=== PATIENT | female | born 1970 | race Caucasian/White ===

== ENCOUNTER → 2017-05-01 | Outpatient (CLI) | payer BC | LOC: MC.RAD 07:30 | DX: N64.89 Other specified disorders of breast (principal) ==

== ENCOUNTER → 2018-10-19 | Outpatient (CLI) | payer OTHER | LOC: MC.RAD 10:57 | DX: Z12.31 Encounter for screening mammogram for malignant neoplasm of breast (principal) ==

== ENCOUNTER → 2019-10-25 | Outpatient (CLI) | payer OTHER | LOC: MC.RAD 09:53 | DX: Z12.31 Encounter for screening mammogram for malignant neoplasm of breast (principal) ==

== ENCOUNTER → 2020-11-06 | Outpatient (CLI) | payer OTHER | LOC: MC.RAD 10-30 10:15 | DX: Z12.31 Encounter for screening mammogram for malignant neoplasm of breast (principal); N64.89 Other specified disorders of breast ==

== ENCOUNTER → 2020-11-16 | Outpatient (CLI) | payer OTHER | LOC: MC.RAD 08:00 | DX: N64.89 Other specified disorders of breast (principal) ==

== ENCOUNTER → 2021-05-21 | Outpatient (CLI) | payer OTHER | LOC: MC.RAD 09:56 | DX: N64.89 Other specified disorders of breast (principal) ==

== ENCOUNTER → 2021-11-26 | Outpatient (CLI) | payer OTHER | LOC: MC.RAD 13:44 | DX: Z12.31 Encounter for screening mammogram for malignant neoplasm of breast (principal) ==

== ENCOUNTER 2022-02-12 07:00 | Day surgery (SDC) | payer OTHER ==
[~2022-02-12] VITALS: Ht 170.2 cm; Wt 90.9 kg
[2022-02-12] MEDS ORDERED: LEXAPRO 10MG10 MG PO (07:20)
[2022-02-12 07:22] VITALS: BP 136/84; PULSE 79; TEMP 97.6
[2022-02-12 08:30] VITALS: BP 130/69; PULSE 70
--- NOTE | 2022-02-12 08:30 | NUR ---
PATIENT RETURNS TO BAY 1 PER CART AND ASSISTED FROM CART TO RECLINER WITH ONE PERSON ASSIST. IV FLUIDS INFUSING. TEMP 98.0 AND ROOM AIR SATS 98%. SPOUSE IN ROOM. DENIES PAIN OR NAUSA. GIVEN COFFE AND MUFFIN.
[2022-02-12 08:45] VITALS: BP 121/71; PULSE 67
--- NOTE | 2022-02-12 08:45 | NUR ---
DR. MURRIETA IN THE ROOM AND TALKS WITH PATIENT AND SPOUSE. ALL QUESTIONS ANSSWERED.
[2022-02-12 09:00] VITALS: BP 123/77; PULSE 62
--- NOTE | 2022-02-12 09:00 | NUR ---
ROOM AIR SATS 99%. TOLERATED SNACK.
--- NOTE | 2022-02-12 09:07 | NUR ---
IV DISCONTINUED AND SITE IS FREE OF REDNESS OR SWELLING. PATIENT DRESSES SELF.
--- NOTE | 2022-02-12 09:17 | NUR ---
DISMISSAL INSTRUCTIONS GIVEN AND VOICES UNDERSTANDING OF THESE.
--- NOTE | 2022-02-12 09:23 | NUR ---
DISMISSED TO HOME PER PRIVATE VEHILCE DRIVEN BY SPOUSE AND TAKEN TO VEHILCE PER WHEELCHAIR AND ASSISTED INTO CAR WITH DISMISSAL INSTRUCTIONS IN HAND.
== END 2022-02-12 09:23 | disposition home or self-care (01) ==
LOC: SDCO 07:00
DX: Z12.11 Encounter for screening for malignant neoplasm of colon (principal); D12.2 Benign neoplasm of ascending colon
CPT/HCPCS: J2704; J3010; J7030

== ENCOUNTER → 2023-12-08 | Outpatient (CLI) | payer OTHER ==
[~2023-12-08] MED LIST: LEXAPRO 10MG10 MG PO
== END ==
LOC: MC.RAD 09:26
DX: Z12.31 Encounter for screening mammogram for malignant neoplasm of breast (principal)